=== PATIENT | male | born 1960 | race Caucasian/White ===

== ENCOUNTER 2023-11-06 06:29 | Observation (INO) | payer BC ==
[2023-11-06 06:58] LABS: #Basophils 0.03 10x3/uL (0.0-0.2); #Eosinphils Less than 0.03 10x3/uL (0.0-0.7); %Basophils 0.2 % (0.0-1.0); %Eosinophils 0.1 % (0.0-10.0); %Lymphocytes 8.2 % (21.0-51.0); %Monocytes 7.1 % (0.0-10.0); %Neutrophils 83.9 % (42.0-75.0); Hematocrit 47.5 % (42.0-52.0); Mean Corpuscular HGB CONC 33.7 g/dL (32.0-36.0); Mean Corpuscular Volume 92.1 fL (78.0-98.0); Platelet Count 234 10x3/uL (130-400); RBC Distribution Width 12.5 % (11.5-14.5); Red Blood Cell (RBC) Count 5.16 mill/uL (4.70-6.10)
[2023-11-06 07:19] LABS: ALT (SGPT) 20 U/L (8-55); AST (SGOT) 17 U/L (5-34); Albumin 4.3 g/dL (3.4-4.8); Alkaline Phosphatase 69 U/L (40-110); Anion Gap 15 mmol/L (10-20); BUN (Urea Nitrogen) 8 mg/dL (8.4-25.7); Bilirubin, Total 1.2 mg/dL (0.2-1.2); Calc. Creatinine Clearance 0 mL/min (70-130); Calcium 9.3 mg/dL (7.8-10.44); Carbon Dioxide 26 mmol/L (23-31); Chloride 102 mmol/L (98-107); Estimated GFR 88; Globulin 2.7 g/dL (2.4-3.5); Glucose 125 mg/dL (80-115); Lipase 17 U/L (8-78); Potassium 3.8 mmol/L (3.5-5.1); Sodium 139 mmol/L (136-145)
[2023-11-06] MEDS ORDERED: Ondansetron PF 4 MG/2 ML Vial ONE ×3 (07:40→16:59)
[2023-11-06] MEDS ORDERED: Morphine 4 MG/ML VIAL ONE (07:40)
[2023-11-06 07:43] LABS: Bacteria/HPF None Seen HPF (None Seen); Bilirubin Negative (Negative); Blood, Urine Negative (Negative); CAUTI Indications for Culture Pelvic or flank pain; Clarity Clear (Clear); Glucose, Urine (Dipstick) Normal (Negative); Ketone, Urine 20 mg/dL (Negative); Leukocyte Negative Leu/uL (Negative); Nitrite Negative (Negative); Protein, Urine (Dipstick) Negative (Neg-Trace); RBC/HPF 0-3 HPF (0-3); Specific Gravity, Urine 1.018 (1.002-1.036); Squamous Epithelial None Seen HPF (0-3); Urobilinogen Normal mg/dL (Less than 2); WBC/HPF 0-3 HPF (0-3)
[2023-11-06 07:46] LABS: Urine Culture Reflex No No
[2023-11-06 08:12] LABS: SARS-CoV-2 E Target Negative; SARS-CoV-2 N2 Target Negative; SARS-CoV-2 NAA Rapid Test Not Detected (NotDetected); SARS-CoV-2 RdRP gene Negative
[2023-11-06] MEDS ORDERED: Iopamidol-370 76% 500 ML MDV (1 ML CHARGE) ONE (08:34)
[2023-11-06] MEDS ORDERED: Sodium Chloride 0.9% 100 ML ONE (08:39)
[2023-11-06] MEDS ORDERED: Piperacillin/Tazobactam 4.5 GM VIAL ONE (08:39)
[2023-11-06] MEDS ORDERED: hydrALAZINE 20 MG/ML VIAL SLOW IVP PRN (08:53)
[2023-11-06] MEDS ORDERED: Ondansetron PF 4 MG/2 ML Vial IVP PRN ×2 (08:53→16:50)
[2023-11-06] MEDS ORDERED: traMADol HCl 50 MG TAB PO PRN (08:53)
[2023-11-06] MEDS ORDERED: Dextrose 50% Abboject 50 ML SYRINGE SLOW IVP PRN ×2 (08:53→16:50)
[2023-11-06] MEDS ORDERED: Dextrose 5% in Water 1,000 ML IV PRN ×2 (08:53→16:50)
[2023-11-06] MEDS ORDERED: HYDROcodone/Acetaminophen 5/325 mg Tablet PO PRN ×2 (08:53→16:55)
[2023-11-06] MEDS ORDERED: Glucagon 1 MG/ML KIT IM PRN ×2 (08:53→16:50)
[2023-11-06] MEDS ORDERED: Ipratropium/Albuterol 3 ML NEB NEB PRN (08:53)
[2023-11-06 09:51] VITALS: BMI 31.0
[2023-11-06] MEDS: Ketorolac Tromethamine 30 MG (1 mL) VIAL IVP SCH ×2 (11:47→17:36)
[2023-11-06] MEDS: LevoFLOXacin 750 mg/D5W 750 MG in Premix 1 BAG IVPB SCH (13:14)
[2023-11-06] MEDS ORDERED: fentaNYL PF 100 MCG/2 ML SYRINGE ONE (15:12)
[2023-11-06] MEDS ORDERED: Rocuronium Bromide 10 MG/ML (10ML VIAL) ONE (15:12)
[2023-11-06] MEDS ORDERED: Lidocaine 1% PF 5 ML VIAL ONE (15:13)
[2023-11-06] MEDS ORDERED: PROPOFOL 20 ML ONE (15:13)
[2023-11-06] MEDS ORDERED: Midazolam HCl 2 mg/2 ml Vial ONE (15:13)
[2023-11-06] MEDS ORDERED: Bupivacaine 0.25% HCL 30 ML VIAL ONE (15:15)
[2023-11-06] MEDS ORDERED: EPINEPHrine 1 MG/ML VIAL ONE (15:15)
[2023-11-06] MEDS ORDERED: Heparin 5,000 UNITS/ML VIAL ONE (15:32)
[2023-11-06] MEDS ORDERED: Ketorolac Tromethamine 30 MG (1 mL) VIAL ONE (16:03)
[2023-11-06] MEDS ORDERED: Dexamethasone 20 MG/5 ML VIAL ONE (16:03)
[2023-11-06] MEDS ORDERED: NEOSTIGMINE 3 MG/3 ML SYRINGE ONE (16:28)
[2023-11-06] MEDS ORDERED: Glycopyrrolate 0.2 MG/ML 5 ML SYRINGE ONE (16:28)
[2023-11-06] MEDS ORDERED: fentaNYL 50 mcg/mL 1 mL Vial ONE (16:37)
[2023-11-06] MEDS ORDERED: LevoFLOXacin D5W 500 mg (100 mL) BAG IVPB SCH (17:00)
[2023-11-06] MEDS: Lactated Ringer's 1,000 ML IV SCH (17:36)
[2023-11-06] MEDS: Famotidine 20 MG TAB PO SCH (20:58)
[2023-11-06] MEDS: metroNIDAZOLE 500 MG in Premix 1 BAG IVPB SCH (20:58)
[2023-11-07 04:55] LABS: #Basophils Less than 0.03 10x3/uL (0.0-0.2); #Eosinphils Less than 0.03 10x3/uL (0.0-0.7); %Basophils 0.1 % (0.0-1.0); %Lymphocytes 6.7 % (21.0-51.0); %Monocytes 7.9 % (0.0-10.0); %Neutrophils 84.9 % (42.0-75.0); Hematocrit 41.4 % (42.0-52.0); Hemoglobin 13.9 g/dL (14.0-18.0); Mean Corpuscular HGB CONC 33.6 g/dL (32.0-36.0); Mean Corpuscular Hemoglobin 31.4 pg (27.0-31.0); Mean Corpuscular Volume 93.5 fL (78.0-98.0); Mean Platelet Volume 10.7 fL (7.4-10.4); Platelet Count 213 10x3/uL (130-400); RBC Distribution Width 12.7 % (11.5-14.5); Red Blood Cell (RBC) Count 4.43 mill/uL (4.70-6.10)
[2023-11-07 05:17] LABS: Anion Gap 14 mmol/L (10-20); BUN (Urea Nitrogen) 9 mg/dL (8.4-25.7); Calc. Creatinine Clearance 100 mL/min (70-130); Calcium 8.8 mg/dL (7.8-10.44); Carbon Dioxide 24 mmol/L (23-31); Chloride 103 mmol/L (98-107); Estimated GFR 83; Glucose 135 mg/dL (80-115); Potassium 3.9 mmol/L (3.5-5.1); Sodium 137 mmol/L (136-145)
[2023-11-07] MEDS: Acetaminophen 325 MG TAB PO PRN (08:24)
[2023-11-07] MEDS: Enoxaparin 40 MG (0.4 mL) SYRINGE SC SCH (08:24)
[2023-11-07 12:23] VITALS: BP 155/93; TEMP 98
== END 2023-11-07 12:38 | disposition home or self-care (01) ==
LOC: ERS 06:29 → SURG A 08:59
PROVIDERS: ADMIT Surgery; ATTEND Surgery
PROC: 0DTJ4ZZ Resection of Appendix, Percutaneous Endoscopic Approach (ICD-10-PCS; principal; 2023-11-07)
PROC: 0WUF4JZ Supplement Abdominal Wall with Synthetic Substitute, Percutaneous Endoscopic Approach (ICD-10-PCS; 2023-11-07)
DX: K35.80 Unspecified acute appendicitis (principal); K42.9 Umbilical hernia without obstruction or gangrene; E78.5 Hyperlipidemia, unspecified
CPT/HCPCS: 36415; 74177; 80048; 80053; 81001; 83605; 83690; 85025; 88304; 96361; 96374; 96375; G0378; J0171; J0665; J1100; J1644; J1650; J1885; J2250; J2272; J2405; J2543; J2704; J3010; Q9967; U0002